=== PATIENT | female | born 1985 | race Caucasian/White ===

== ENCOUNTER 2017-11-10 11:41 | Outpatient (CLI) | payer OTHER ==
--- NOTE | 2017-11-10 12:56 | RAD ---
LUMBAR SPINE FOUR VIEWS: History: 31-year-old female with history of chronic low back pain with associated injury. FINDINGS: Disc spaces appear adequately preserved. No acute fracture or dislocation or significant malalignment . No abnormal translation between flexion and extension. IMPRESSION: Unremarkable lumbar spine. No abnormal translation between flexion and extension or other acute proce ss. POS: [facility]
== END 2017-11-10 11:42 | disposition home or self-care (01) ==
LOC: SCSRAD 11:41
PROVIDERS: ATTEND Family Medicine
DX: M54.5 Low back pain (principal)
CPT/HCPCS: 72110

== ENCOUNTER 2017-12-08 10:03 | Outpatient (CLI) | payer OTHER ==
--- NOTE | 2017-12-08 18:15 | MRI ---
MRI LUMBAR SPINE WITHOUT CONTRAST: 12/08/17 HISTORY: Low back pain. Tailbone pain. Symptoms x3 years. COMPARISON: None. TECHNIQUE: MRI lumbar spine is performed without intravenous gadolinium administration. Multisequential, multipl brunilda imaging is performed. FINDINGS: Appropriate T1 marrow signal intensity of the lumbar vertebrae. Vertebral body height is maintained. No fracture. No significant STIR hyperintensity to suggest vertebral body edema or ligamentous injury . Symmetric signal intensity of the psoas muscles. Appropriate signal intensity in the visualized laila id organs. Conus medullaris terminates at the inferior aspect of the T12. T12-L1: Adequate disc hydration. No significant central canal stenosis. Foramina are patent. L1-2: Adequate disc hydration. No significant central canal stenosis. Foramina are patent. L2-3: Adequate disc hydration. No significant central canal stenosis. Foramina are patent. L3-4: Adequate disc hydration. No significant central canal stenosis. Foramina are patent. L4-5: Adequate disc hydration. Minimal central disc bulge. No significant central canal stenosis. [place] ral foramina are patent bilaterally. L5-S1: Desiccation with mild loss of disc space height. Generalized disc bulge with a posterior annul ar fissure that is associated with a minimal central disc protrusion. Right neural foramen and left n eural foramen are mildly narrowed. IMPRESSION: Mild loss of disc space height at L5-S1. There appears to be an associated posterior annular fissure with minimal central disc protrusion. No significant central canal stenosis or foraminal narrowing. POS: [facility]
== END 2017-12-08 10:04 | disposition home or self-care (01) ==
LOC: SCSMRI 10:03
PROVIDERS: ATTEND Family Medicine
DX: M54.5 Low back pain (principal); G89.29 Other chronic pain; M51.87 Other intervertebral disc disorders, lumbosacral region
CPT/HCPCS: 72148

== ENCOUNTER 2019-03-31 09:37 | Outpatient (CLI) | payer OTHER ==
--- NOTE | 2019-03-31 10:27 | MMO ---
Bilateral MAMMO Bilat Diag [facility]. CLINICAL HISTORY: Patient is 33 years old and is seen for diagnostic exam. VIEWS: The views performed were: bilateral craniocaudal with tomosynthesis; bilateral mediolateral oblique with tomosynthesis; and bilateral mediolateral with tomosynthesis. FILMS COMPARED: The present examination has been compared to a prior imaging study performed at [facility] on 03/31/2019. This study has been interpreted with the assistance of computer-aided detection. MAMMOGRAM FINDINGS: The breasts are heterogeneously dense, which could obscure a lesion on mammography. There are no suspicious masses, suspicious calcifications, or new areas of architectural distortion. No sonographic abnormality is seen in the region of pain and palpable abnormality. IMPRESSION: THERE IS NO MAMMOGRAPHIC EVIDENCE OF MALIGNANCY. NO MAMMOGRAPHIC OR SONOGRAPHIC ABNORMALITIES ARE PRESENT TO CORRELATE WITH THE SITE OF PALPABLE CONCERN AND PAIN. THE PATIENT WILL BE REFERRED BACK TO HER CLINICIAN FOR FURTHER CARE. BIOPSY SHOULD NOT BE PRECLUDED BY THE ABSCENCE OF IMAGING FINDINGS, IN THE SETTING OF CLINICAL CONCERN FOR MALIGNANCY. THE FINDINGS AND RECOMMENDATIONS WERE DISCUSSED WITH THE PATIENT PRIOR TO HER LEAVING THE CENTER. A ROUTINE FOLLOW-UP MAMMOGRAM AT AGE 38 IS RECOMMENDED. THE RESULTS OF THIS EXAM WERE SENT TO THE PATIENT. ACR BI-RADS Category 1 - Negative MAMMOGRAPHY NOTE: 1. A negative mammogram report should not delay a biopsy if a dominant of clinically suspicious mass is present. 2. Approximately 10% to 15% of breast cancers are not detected by mammography. 3. Adenosis and dense breasts may obscure an underlying neoplasm. Reported by: ARMAAN VALLE MD Electonically Signed: [id number]
--- NOTE | 2019-03-31 10:29 | ULT ---
RIGHT BREAST DIAGNOSTIC ULTRASOUND: INDICATION: A region of palpable abnormality and pain in the right breast 5 o'clock position. FINDINGS: No suspicious sonographic abnormality is seen within the region of pain and palpable abnormality in t he right breast 5 o'clock position. IMPRESSION: BIRADS category 1 - negative. POS: OFF
== END 2019-03-31 09:38 | disposition home or self-care (01) ==
LOC: BICMAMMO 09:37
PROVIDERS: ATTEND Obstetrics & Gynecology
DX: N63.10 Unspecified lump in the right breast, unspecified quadrant (principal); N64.4 Mastodynia
CPT/HCPCS: 77066; G0279